=== PATIENT | female | born 1990 ===

== ENCOUNTER 2023-12-30 17:18 | Emergency (ER) | payer OTHER ==
[~2023-12-30] VITALS: Ht 157.5 cm; Wt 55.0 kg
[2023-12-30 17:21] VITALS: BP 133/77; PULSE 75; RESP 16; O2SAT 100
[2023-12-30] MEDS ORDERED: FERR325T27 PO (17:23)
[2023-12-30 18:31] LABS: BASOPHILS % (AUTO) 0.2 % (0.0-2.0); EOSINOPHILS % (AUTO) 2.8 % (1.0-6.0); HEMATOCRIT 39.1 % (36-46); HEMOGLOBIN 12.8 g/dL (12.0-16.0); LYMPHOCYTES % (AUTO) 27.3 % (22.0-44.0); MEAN CORPUSCULAR HGB CONC 32.7 G/dL (31.0-37.0); MEAN CORPUSCULAR VOLUME 85 fL (80-100); MONOCYTES # (AUTO) 0.5 K/uL (0.1-1.0); MONOCYTES % (AUTO) 6.8 % (2.0-9.0); NEUTROPHILS # (AUTO) 4.6 K/uL (1.8-7.7); NEUTROPHILS % (AUTO) 62.9 % (40.0-70.0); PLATELET COUNT (AUTO) 213 K/uL (150-450); RED BLOOD CELL COUNT(AUTO) 4.57 MIL/uL (4.00-5.20); RED CELL DISTRIBUTION WIDTH 13.8 % (11.5-14.5); WHITE BLOOD COUNT (AUTO) 7.2 K/uL (4.5-11.0)
[2023-12-30] MEDS: SODIUM CHLORIDE 0.9% 1,000 ML IV ONE (18:31)
[2023-12-30 18:39] LABS: ANION GAP 9 mmol/L (8-16); CALCIUM, TOTAL 8.8 mg/dL (8.8-10.5); CARBON DIOXIDE 28 mmol/L (22-29); CHLORIDE 99 mmol/L (98-107); GLOMERULAR FILTR. RATE CALC > 60 mL/min (>60); GLUCOSE,RANDOM 226 mg/dL (70-110); POTASSIUM 3.7 mmol/L (3.5-5.1); SODIUM SERUM 136 mmol/L (136-145); UREA NITROGEN, BLOOD 12 mg/dL (7-18)
[2023-12-30] MEDS: DiphenhydrAMINE HCL 50 MG/ML VIAL IVP ONE (20:25)
[2023-12-30] MEDS: METOCLOPRAMIDE HCL 5 MG/ML 2 ML VIAL IVP ONE (20:26)
[2023-12-30] MEDS: KETOROLAC TROMETHAMINE 30 MG/ML VIAL IVP ONE (20:26)
== END 2023-12-30 22:06 | disposition home or self-care (01) ==
LOC: EMS 17:18
DX: G43.909 Migraine, unspecified, not intractable, without status migrainosus (principal)
CPT/HCPCS: 99284; 96374; 96375; 96361; 80048; 84703; 85025; 36415; J1200; J1885; J2765; J7030